=== PATIENT | male | born 1970 | race Caucasian/White ===

== ENCOUNTER 2021-04-13 06:49 | Day surgery (SDC) | payer BC ==
[~2021-04-13 06:49] MED LIST: Sodium Chloride 0.9% 10 ML Syringe FLUSH PRN
[2021-04-13] MEDS ORDERED: Ketamine 500 mg/10 ML MDV IV ONE (06:50)
[2021-04-13] MEDS ORDERED: Propofol 200 MG/20 ML SDV IV ONE (06:50)
[2021-04-13] MEDS: Lactated Ringers 1,000 ML IV SCH (07:20)
--- NOTE | 2021-04-13 08:07 | PCM.PN ---
- General Info Date of Service: 04/13/21 - Review of Systems Systems Review Comment:: 50 y/o male comes today for his initial screening colonoscopy. He denies any difficulty with his bowel function and denies any know family history of colon cancer. I have discussed the proposed colonoscopy with the patient. Risks such as but not limited to bleeding and GI injury reviewed. He agrees to proceed. There has been no significant recent changes to his health status. - Patient Data Vitals - Most Recent: Last Vital Signs Temp 97.2 F 04/13/21 06:45 Pulse 71 04/13/21 06:45 Resp 16 04/13/21 06:45 BP 137/80 04/13/21 06:45 Pulse Ox 96 04/13/21 06:45 Weight - Most Recent: 290 lb 2.053 oz Lab Results Last 24 Hours: Laboratory Results - last 24 hr 04/13/21 Range/Units 07:15 POC Glucose 158 H (80-116) mg/dL Med Orders - Current: Current Medications Lactated Ringer's (Ringers, Lactated) 1,000 mls @ 125 mls/hr IV ASDIRECTED LUIS A Last Admin: 04/13/21 07:20 Dose: 125 mls/hr Documented by: Sodium Chloride (Sodium Chloride 0.9% 10 Ml Syringe) 10 ml FLUSH ASDIRECTED PRN PRN Reason: Keep Vein Open - Patient Data Lab Results Last 24 hrs: Laboratory Results - last 24 hr 04/13/21 Range/Units 07:15 POC Glucose 158 H (80-116) mg/dL Sepsis Event Note - Focused Exam Vital Signs: Vital Signs Temp Pulse Resp BP Pulse Ox 04/13/21 06:45 97.2 F 71 16 137/80 96 - Problem List Review Problem List Initiated/Reviewed/Updated: Yes - My Orders Last 24 Hours: My Active Orders 04/13/21 Breakfast Nothing Per Oral Diet [DIET] 04/13/21 06:45 Patient Status [ADT] Routine Blood Glucose Check, Bedside [RC] ONETIME Patient to Empty Bladder [RC] ASDIRECTED Verify Patient Consent Obtain [RC] ASDIRECTED Lactated Ringers [Ringers, Lactated] 1,000 ml IV ASDIRECTED Sodium Chloride 0.9% [Saline Flush] 10 ml FLUSH ASDIRECTED PRN Peripheral IV Insertion Adult [OM.PC] Routine - Assessment Assessment:: Colon Cancer Screening - Plan Plan:: Colonoscopy
--- NOTE | 2021-04-13 08:55 | PCM.OPNOTE ---
- General Post-Op/Procedure Note Date of Surgery/Procedure: 04/13/21 Operative Procedure(s): Colonoscopy with Polypectomy Findings: Small polyps x3 Colon otherwise normal Pre Op Diagnosis: Colon Cancer Screening Post-Op Diagnosis: Colon Polyps Anesthesia Technique: MAC Primary Surgeon: Andrew Meneses Pathology: Colon Polyps EBL in mLs: 2 Complications: None Condition: Good
[2021-04-13 09:36] VITALS: BP 114/64; PULSE 63
--- NOTE | 2021-04-13 12:01 | OR ---
DATE OF OPERATION: 04/13/2021 SURGEON: Andrew Meneses MD PREOPERATIVE DIAGNOSIS: Colon cancer screening. POSTOPERATIVE DIAGNOSIS: Colon polyps. OPERATION PERFORMED: Colonoscopy with polypectomy. INDICATIONS FOR SURGERY: This 50-year-old male is referred today for his initial screening colonoscopy. He denies any known family history of colon cancer or recent symptoms. FINDINGS: Three polyps were noted on today's exam. There is a 5 mm pedunculated polyp in the rectum, 8 cm from the anal verge. There is a 6 mm sessile polyp in the mid transverse colon and a 6 mm sessile polyp in the cecum. The remainder of the colon and rectum otherwise appear normal. PROCEDURE IN DETAIL: The patient was taken to the procedure room. He was given intravenous sedation, and with him in the left lateral decubitus position, digital rectal exam was performed showing no rectal masses. The Olympus colonoscope was inserted into the rectum. Retroflexed examination of the rectal canal was performed. Examination of the rectum did identify the above-described polyp. This was removed completely with the cold biopsy forceps. The scope was then slowly advanced throughout the entire length of the colon until the cecum was reached. In the transverse colon, the above-described polyp there was identified and removed with a cautery snare. Once the cecum had been reached, cecal acquisition was confirmed by noting the normal internal cecal anatomy including the appendiceal orifice and the ileocecal valve. In the cecum, the other above-described polyp was identified. This was also completely removed with the cold biopsy forceps. All removed polyps were retrieved and will be submitted for pathology. After carefully examining the cecum, the scope was slowly withdrawn sequentially re-examining the colonic segments until the entire colon and rectum had been fully examined. The scope was removed and the patient was taken from the procedure room in satisfactory condition. ESTIMATED BLOOD LOSS: 2 mL. COMPLICATIONS: None. PROGNOSIS: Good. /[id number] SYLVIE/ROSHNI
== END 2021-04-13 09:30 | disposition home or self-care (01) ==
LOC: FB.SDS 06:49
PROVIDERS: ATTEND Surgery
DX: Z12.11 Encounter for screening for malignant neoplasm of colon (principal); D12.8 Benign neoplasm of rectum; D12.0 Benign neoplasm of cecum; D12.3 Benign neoplasm of transverse colon; E11.9 Type 2 diabetes mellitus without complications; I10 Essential (primary) hypertension; E66.9 Obesity, unspecified; E78.00 Pure hypercholesterolemia, unspecified; K21.9 Gastro-esophageal reflux disease without esophagitis; Z79.84 Long term (current) use of oral hypoglycemic drugs; Z68.39 Body mass index [BMI] 39.0-39.9, adult
CPT/HCPCS: 00812-QZ; 82947; 88305; J2704; J7120